=== PATIENT | male | born 1935 | race Caucasian/White ===

== ENCOUNTER 2021-05-06 20:26 | Emergency (ER) | payer MEDICARE, OTHER, SELFPAY ==
--- NOTE | ~2021-05-06 | CT_ITS ---
EXAMINATION: CT abdomen pelvis w con DATE: 05/07/2021 02:15 INDICATION: Genitourinary swelling and erythema. Assess for free air. TECHNIQUE: Computed tomography (CT) of the abdomen and pelvis was performed with 100 mL Omnipaque-350 intravenous contrast. Automated exposure control and iterative reconstruction technique were employe d. The dose-length product was 374.57 mGy-cm. COMPARISON: None FINDINGS: Respiratory motion at the lung bases with mild atelectasis/scarring at the right lung base. Heart siz e is normal. Contrast fills the majority of a large left ventricular pseudoaneurysm extending across the lateral wall and which measures 5.0 x 4.7 x 6.4 cm. There is lower density thrombus within the ce phalad third of the pseudoaneurysm. No pericardial effusion. Atherosclerotic coronary artery calcific ations. Median sternotomy wires and several surgical clips anterior and posterior to the heart which may relate to prior coronary artery bypass grafting. There is motion artifact throughout the abdomen which mildly limits evaluation. There are couple appr oximately 1 cm low-attenuation hepatic cysts. There are 3 small peripheral wedge-shaped regions of de creased attenuation at the periphery of the dome of the liver, one with associated small coarse calci fications. Gallbladder, spleen, pancreas and bilateral adrenal glands are normal. Moderate bilateral renal atrophy. There is mild right hydronephrosis and proximal right hydroureter with prominent assoc iated urothelial enhancement in the proximal right ureter. There is small amount of fluid and strandi ng surrounding the right ureteropelvic junction. No evident obstructing stone or mass. Mild haziness to the fat surrounding the normal-appearing bladder which could be seen with cystitis. Multiple radio therapy seeds in the region of the prostate which appears small. There is a 7.0 x 5.6 x 4.3 cm periph erally enhancing fluid collection with a few small foci of gas extending along the left and inferior side of the penis concerning for abscess. The abscess does not appear to extend into the scrotum wher e there is mild scrotal edema. 7 cm ball of stool at the rectum. There are few diverticula along the distal descending and sigmoid colon without adjacent inflammatory change to suggest diverticulitis. N o bowel obstruction. The appendix is not visualized. No pericecal inflammatory change to suggest acut e appendicitis. No intraperitoneal abscess or free intraperitoneal gas or fluid. No pathologically en larged abdominal or pelvic lymphadenopathy. There is calcified atherosclerosis of the aorta and many of the other arteries. Moderate disc height loss and bridging anterior left sided endplate osteophyte s at L5-S1. Mild spondylosis in the more cephalad thoracolumbar spine. IMPRESSION: 1. 7.0 x 5.6 x 4.3 cm abscess along the left inferior aspect of the penis. 2. Inflammatory change surrounding the bladder suggestive of cystitis. Correlate with urinalysis. 3. Mild right proximal hydroureteronephrosis with transition point with urothelial enhancement both w ithout evident obstructing stone or mass at the proximal left ureter. This could be related to ascend ing urinary tract infection and secondary inflammation although could not exclude obstructing urothel ial malignancy. Correlate with urinalysis and consider further evaluation with either CT angiogram or ureteroscopy. 4. 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 Reviewed, dictated and finalized at location [facility]. [facility] IMPRESSION: 1. 7.0 x 5.6 x 4.3 cm abscess along the left inferior aspect of the penis. 2. Inflammatory change surrounding the bladder suggestive of cystitis. Correlat e with urinalysis. 3. Mild right proximal hydroureteronephrosis with transi
[2021-05-06 20:42] VITALS: BP 144/55; PULSE 57; RESP 20; TEMP 36.3; O2SAT 100
--- NOTE | 2021-05-07 00:31 | ED.MALEGU ---
HPI - Male Genitourinary General Chief complaint: Urogenital-Male Stated complaint: urinary cath problem Time Seen by Provider: 05/06/21 23:38 Source: family History of Present Illness HPI Narrative: Family brings patient in concern for urinary tract infection. Patient has history of TIAs, chronic indwelling Yao catheter related to neurogenic bladder, and strictures from radiation therapy due to prostate cancer. Family was changing out his Yao catheter today per their usual routine family noted edema to the area and pain with palpation. She was unable to replace the Yao so she came to the ER for evaluation. She also noted the urine smell very foul. Reports a history of yeast infections and urinary tract infection and is concerned for the same. Prior to today patient was in his usual state of health. Related Data Home Medications Medication Instructions Recorded Confirmed acetaminophen 325 mg tablet 325 mg PO Q6H PRN 04/18/19 04/21/19 aspirin 81 mg tablet,delayed 81 mg PO DAILY 04/18/19 04/21/19 release docusate sodium 100 mg capsule 100 mg PO BID 04/18/19 04/21/19 nystatin 100,000 unit/gram topical 1 applic TOPICAL BID 04/18/19 04/21/19 cream oxybutynin chloride 5 mg 5 mg PO DAILY 04/18/19 04/21/19 tablet,extended release 24 hr cephalexin 500 mg capsule 500 mg PO DAILY cap 04/21/19 04/21/19 promethazine 12.5 mg tablet 12.5 mg PO Q6H PRN 04/21/19 04/21/19 tramadol 50 mg tablet 50 mg PO Q6H PRN 04/21/19 04/21/19 Allergies Allergy/AdvReac Type Severity Reaction Status Date / Time No Known Allergies Allergy Verified 05/07/21 04:08 Review of Systems Review of Systems: ROS unobtainable: Yes unobtainable due to medical condition PMFSH Past Medical History Medical History Allergies Anxiety BPH NOS w ur obs/LUTS CAD in [place] artery CKD (chronic kidney disease) stage 3, GFR 30-59 ml/min Dementia with behavioral disturbance Diabetes Dyslipidemia Elevated lipids Essential (primary) hypertension GERD (gastroesophageal reflux disease) GERD without esophagitis History of prostate cancer Hypertension Hypothyroidism (acquired) Legally blind Surgical History Surgical History FH: coronary artery bypass surgery 12/2004 Family History Family History Mother Family history of malignant neoplasm Sibling Family history of primary malignant neoplasm of liver Family history of malignant neoplasm of breast in first degree relative Social History Social History Smoking status: Never smoker Second hand tobacco smoke exposure: No Alcohol intake: never Substance use: never Substance use type: does not use Exam Narrative: GENERAL: Well-appearing, well-nourished, and in no acute distress. HEAD: Normocephalic, atraumatic. EYES: PERRLA and EOMI. ENT: Nares clear, no rhinorrhea or epistaxis. Mucous membranes moist. NECK: Supple. No masses. No JVD ABDOMEN: Moderate tenderness with palpation of the suprapubic area soft, nondistended : Diffuse erythema and edema to the penis and scrotum no open or draining wounds no focal fluid collections no crepitus EXTREMITIES: Normal range of motion. No edema. SKIN: Warm, dry, no rash. NEURO: No focal deficits. Alert and oriented x3. PSYCH: Normal mood and affect. Course Reevaluation(s) Reevaluation #1: Patient has been resting comfortably antibiotics were ordered. 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 Dee on-call for urology here however due to the concern for Shagufta's recommended transfer to tertiary facility. Case discussed with Dr. Chapman urology at [facility] due to the imaging findings patient was transferred to the [facility] ER for further
[2021-05-07 00:38] VITALS: BP 158/86; PULSE 83; RESP 20; O2SAT 100
--- NOTE | 2021-05-07 00:45 | PC.NURSE ---
This RN unable to obtain IV access. 2nd Rn to try.
[2021-05-07 01:30] LABS: Basophils Percent Auto 0.4 % (0.2-1.2); Eosinophils Percent Auto 0.2 % (0-4.4); Hematocrit 32.1 % (42.0-52.0); Hemoglobin 10.3 g/dL (14.0-18.0); Immature Granulocyte Absolute 0.07 K/mm3 (0.00-0.031); Immature Granulocyte Percent A 0.6 % (0-0.5); Lymphocytes Percent Auto 15.5 % (18.3-44.2); Mean Corpuscular HGB Conc 32.1 g/dl (32-36); Mean Corpuscular Hemoglobin 29.2 pg (26-34); Mean Corpuscular Volume 90.9 fl (80-100); Mean Platelet Volume 9.2 fl (7.4-10.4); Monocytes Absolute Auto 1.1 K/mm3 (0.1-0.6); Monocytes Percent Auto 10.2 % (2.6-8.5); Neutrophils Percent Auto 73.1 % (45.5-73.1); Platelet Count Result 397 k/mm3 (150-375); Red Blood Count 3.53 M/mm3 (4.6-6.20); Red Cell Distribution Width 16.3 % (11.5-14.5)
[2021-05-07 01:41] LABS: Alanine Aminotransferase 11 U/L (4-50); Albumin Level 3.7 g/dL (3.5-5.1); Alkaline Phosphatase 108 U/L (38-126); Anion Gap 11 mmol/L (8-16); Aspartate Amino Transferase 27 U/L (17-59); Bilirubin,Total 0.5 mg/dL (0.2-1.3); Blood Urea Nitrogen 27 mg/dL (9-20); Calcium 9.1 mg/dL (8.4-10.2); Carbon Dioxide 22 mmol/L (22-30); Chloride 105 mmol/L (98-107); Estimated CRCL calculation 25 ml/min; Estimated Glomerular Filt Rate 44; Glucose 110 mg/dL (65-110); Lipase 55 U/L (23-300); Potassium 4.9 mmol/L (3.4-5.0); Sodium 138 mmol/L (137-145)
[2021-05-07] MEDS: SODIUM CHLORIDE 0.9% IV 500 ML 999 ML IV CONT (01:51)
--- NOTE | 2021-05-07 02:30 | PC.NURSE ---
This RN attempted 2x for Yao catheter insertion, no success. EDP notified
[2021-05-07 03:27] VITALS: BP 144/88; PULSE 72; RESP 20; O2SAT 100
[2021-05-07 04:44] VITALS: BP 130/88; PULSE 76; RESP 24; O2SAT 100
[2021-05-07 06:18] VITALS: BP 135/58; PULSE 65; RESP 23; O2SAT 100
[2021-05-07 06:50] VITALS: BP 127/56; PULSE 72; RESP 25; TEMP 38; O2SAT 99
== END 2021-05-07 06:54 | disposition short-term general hospital (02) ==
PROVIDERS: Emergency Provider Emergency Medicine; PCP Family Medicine
DX: N49.3 Fournier gangrene (principal); F41.9 Anxiety disorder, unspecified; I25.10 Atherosclerotic heart disease of native coronary artery without angina pectoris; I12.9 Hypertensive chronic kidney disease with stage 1 through stage 4 chronic kidney disease, or unspecified chronic kidney disease; E11.22 Type 2 diabetes mellitus with diabetic chronic kidney disease; N18.30 Chronic kidney disease, stage 3 unspecified; F03.91 Unspecified dementia, unspecified severity, with behavioral disturbance; E78.5 Hyperlipidemia, unspecified; K21.9 Gastro-esophageal reflux disease without esophagitis; E03.9 Hypothyroidism, unspecified; H54.8 Legal blindness, as defined in USA; Z85.46 Personal history of malignant neoplasm of prostate; Z92.3 Personal history of irradiation
CPT/HCPCS: 36415; 74177; 80053; 83605; 83690; 85025; 87040; 96365; 96375; 99285; J0131; J2543; J7040; Q9967